=== PATIENT | female | born 2000 | race Caucasian/White ===

== ENCOUNTER 2022-12-13 17:37 | Emergency (ER) | payer OTHER, SELFPAY ==
[2022-12-13 18:18] LABS: Urine Blood Negative (Negative); Urine Glucose Negative (Negative); Urine Protein Negative (Negative); Urine Specific Gravity <=1.005 (1.005-1.030)
[2022-12-13 18:26] LABS: Absolute Lymphocytes (CBC) 2.8 K/uL (0.7-4.9); Hematocrit 40.1 % (36.0-45.0); MCV 89.9 fL (80-100); MPV 7.2 fL (7.6-11.3); RBC Red Blood Cell Count 4.46 M/uL (3.86-4.86)
[2022-12-13 18:30] LABS: Protime INR 1.06
[2022-12-13 18:31] LABS: Barbiturates NEGATIVE (NEGATIVE); Benzodiazepines NEGATIVE (NEGATIVE); Cocaine NEGATIVE (NEGATIVE); METHAMPHETAM NEGATIVE (NEGATIVE); Methadone NEGATIVE (NEGATIVE); Opiates NEGATIVE (NEGATIVE); Phencyclidine NEGATIVE (NEGATIVE); THC Cannibis NEGATIVE (NEGATIVE)
[2022-12-13 18:40] LABS: Albumin 4.5 g/dL (3.4-5.0); Bilirubin Direct 0.2 mg/dL (0-0.2); Bilirubin Total 0.8 mg/dL (0.2-1.0); Potassium 3.7 mmol/L (3.5-5.1); Protein, Total 8.9 g/dL (6.4-8.2)
[2022-12-13 19:50] LABS: SARS-CoV-2 Antigen Rapid Res Negative (Negative)
--- NOTE | 2022-12-14 00:33 | EDPHYS ---
Physician Documentation [facility] Name: Manisha Whitt Age: 22 yrs Sex: Female : 2000 Arrival Date: 12/13/2022 Time: 17:45 Bed 19 Private MD: ED Physician Kevin Cotton HPI: 12/13 17:51 This 22 yrs old Female presents to ER via Unassigned with complaints of Suicidal sp3 Ideation, Abdominal Pain. 17:51 22-year-old female with a history of bipolar disease with heavy depression presents to [facility] the ED with suicidal ideation after "a stressful day" with minor verbal altercation with her after which she took 7 packets of Milag[place] plus day night which has 325 mg of acetaminophen, 10 mg of dextromethorphan, 5 mg of phenylephrine per packet giving a total dosage of acetaminophen 2.275 g, 71 g of dextromethorphan and 35 mg of phenylephrine. Patient is not currently suicidal and only complains of mild nausea. She denies any headache, URI symptoms, fever, neck pain, chest pain, back pain, shortness of breath, vomiting, diarrhea, abdominal pain, bleeding, rash, homicidal ideation, active psychosis, travel history, known sick contacts, prior acetaminophen overdose or any other signs or symptoms on review of systems at this time.. GARMENT FITTER: 12/14 01:00 LMP N/A - unknown pf1 Historical: - Allergies: 12/13 17:56 No Known Allergies; db - PSHx: 17:56 depression; db - Immunization history:: Adult Immunizations unknown. - Social history:: Smoking status: Patient denies any tobacco usage or history of. ROS: 17:55 Constitutional: Negative for fever, chills, and weight loss, Eyes: Negative for injury, sp3 pain, redness, and discharge, ENT: Negative for injury, pain, and discharge, Neck: Negative for injury, pain, and swelling, Cardiovascular: Negative for chest pain, palpitations, and edema, Respiratory: Negative for shortness of breath, cough, wheezing, and pleuritic chest pain, Back: Negative for injury and pain, MS/Extremity: Negative for injury and deformity, Skin: Negative for injury, rash, and discoloration, Neuro: Negative for headache, weakness, numbness, tingling, and seizure, Allergy/Immunology: Negative for hives, rash, and allergies, Endocrine: Negative for neck swelling, polydipsia, polyuria, polyphagia, and marked weight changes. 17:55 All other systems are negative. Exam: 17:55 Constitutional: This is a well developed, well nourished patient who is awake, alert, sp3 and in no acute distress. Head/Face: Normocephalic, atraumatic. Eyes: Pupils equal round and reactive to light, extra-ocular motions intact. Lids and lashes normal. Conjunctiva and sclera are non-icteric and not injected. Cornea within normal limits. Periorbital areas with no swelling, redness, or edema. ENT: Nares patent. No nasal discharge, no septal abnormalities noted. External auditory canals are clear. Oropharynx with no redness, swelling, or masses, exudates, or evidence of obstruction, uvula midline. Mucous membranes moist. Neck: Trachea midline, no thyromegaly or masses palpated, and no cervical lymphadenopathy. Supple, full range of motion without nuchal rigidity, or vertebral point tenderness. No Meningismus. Chest/axilla: Normal chest wall appearance and motion. Nontender with no deformity. No lesions are appreciated. Cardiovascular: Regular rate and rhythm with a normal S1 and S2. No gallops, murmurs, or rubs. Normal PMI, no JVD. No pulse deficits. Respiratory: Lungs have equal breath sounds bilaterally, clear to auscultation and percussion. No rales, rhonchi or wheezes noted. No increased work of breathing, no retractions or nasal flaring. Abdomen/GI: Soft, non-tender, with normal bowel sounds. No distension or tympany. No guarding or rebound. No evidence of tenderness throughout. Back: No spinal tenderness. No costovertebral tenderness. Full range of motion. MS/ Extremity: Pulses equal, no cyanosis. Neurovascular intact. Full, normal range of motion. Neuro: Awake and alert, GCS 15, oriented to person, place, time, and situation. Cranial nerves II-XII grossly intact. Motor strength 5/5 in all extremities. Sensory grossly intact. Cerebellar exam normal. Normal gait. 17:55 Psych: Patient denies on direct questioning any current suicidal ideation, homicidal ideation, psychosis. Her affect is flat. She is not responding to internal stimuli.. 19:44 ECG was reviewed by the Attending Physician. kdr Vital Signs: 17:30 BP 116 / 76; Pulse 72; Resp 16; Temp 98.9(O); Pulse Ox 100% ; Weight 63.5 kg; Height 5 db ft. 7 in. (170.18 cm); 18:30 BP 98 / 69; Pulse 69; Resp 16; Pulse Ox 97% on R/A; db 19:30 BP 98 / 64; Pulse 65; Resp 18; Temp 98; Pulse Ox 100% on R/A; Pain 0/10; pf1 20:30 BP 100 / 58; Pulse 84; Resp 16; Pulse Ox 100% on R/A; Pain 0/10; pf1 21:00 BP 110 / 62; Pulse 80; Resp 16; Pulse Ox 97% on R/A; Pain 0/10; pf1 22:00 BP 98 / 59; Pulse 74; Resp 18; Pulse Ox 99% on R/A; Pain 0/10; pf1 23:00 BP 104 / 56; Pulse 73; Resp 16; Pulse Ox 99% on R/A; Pain 0/10; pf1 12/14 00:00 BP 92 / 64; Pulse 67; Resp 18; Pulse Ox 100% on R/A; Pain 0/10; pf1 00:37 BP 105 / 71 LA Sitting (auto/reg); Pulse 78 MON; Resp 16 S; Temp 98.3(O); Pulse Ox 99% ds4 on R/A; 12/13 17:30 Body Mass Index 21.93 (63.50 kg, 170.18 cm) db MDM: 12/13 17:49 Patient medically screened. sp3 17:56 Data reviewed: vital signs, nurses notes. ED course: 22-year-old with intentional sp3 overdose Mil[place] including acetaminophen, dextromethorphan, phenylephrine. Her total acetaminophen intake is estimated at 2.275 g well within the 4 g limit. Patient is not actively suicidal. Patient likely will be medically clear and if psychiatry clears her, I think will be safe for outpatient follow-up. Signed patient out to night physician for final disposition.. 12/14 00:35 ED course: I reevaluated the patient along with her . They are sitting here in kdr the ED now for nearly 20 hours. Patient has been cooperative and without further incident. Patient's laboratory data was reviewed. There were no issues to address there. Patient and her feel that she is stabilized at this time and is not a threat to herself. Further the will be more active and managing the medications and the patient's mental status. Patient stated that particulars today was difficult because a near relative had been placed in a difficult medical situation and that was troubling to the patient which precipitated the action which happened today. Patient otherwise was stable and appropriate in the ED and appears nontoxic and able to be discharged on her own with her .. 12/13 17:45 Order name: Acetaminophen; Complete Time: 19:39 sp3 12/13 17:45 Order name: Basic Metabolic Panel; Complete Time: 19:39 sp3 12/13 17:45 Order name: CBC with Diff; Complete Time: 19:39 sp3 12/13 17:45 Order name: ETOH Level; Complete Time: 19:39 sp3 12/13 17:45 Order name: Hepatic Function; Complete Time: 19:39 sp3 12/13 17:45 Order name: PT-INR; Complete Time: 19:39 sp3 12/13 17:45 Order name: Ptt, Activated; Complete Time: 19:39 sp3 12/13 17:45 Order name: Salicylate; Complete Time: 19:39 sp3 12/13 17:45 Order name: Urine Drug Screen; Complete Time: 19:39 sp3 12/13 17:45 Order name: EKG; Complete Time: 17:46 sp3 12/13 17:45 Order name: EKG - Nurse/Tech; Complete Time: 19:43 sp3 12/13 18:18 Order name: Urine Dipstick-Ancillary; Complete Time: 19:39 EDMS 12/13 19:20 Order name: SARS RAPID; Complete Time: 22:37 bb 12/13 19:41 Order name: Acetaminophen: Draw at 2200; Complete Time: 22:37 kdr 12/13 17:45 Order name: IV Saline Lock; Complete Time: 19:17 sp3 12/13 17:45 Order name: Labs collected and sent; Complete Time: 19:17 sp3 12/13 17:45 Order name: Suicide Precautions; Complete Time: 18:00 sp3 12/13 17:45 Order name: Suicide Screening ([place]); Complete Time: 19:17 sp3 12/13 17:45 Order name: Urine Dipstick-Ancillary (obtain specimen); Complete Time: 18: sp3 12/13 17:45 Order name: Urine Test (obtain specimen); Complete Time: 18: sp3 EC/16 19:44 Rate is 68 beats/min. Rhythm is regular, Sinus Rhythm with No ectopy. QRS [place] is kdr Normal. ME interval is normal. QRS interval is normal. QT interval is normal. Clinical impression: NSR w/ Non-specific ST/T Changes. Administered Medications: No medications were administered Disposition Summary: 12/14/22 00:33 Discharge Ordered Location: Home kdr Problem: an acute exacerbation kdr Symptoms: have improved kdr Condition: Stable kdr Diagnosis - Suicidal ideations kdr - Suicide attempt kdr - Major depressive disorder, recurrent, moderate kdr - Bipolar disorder, current episode depressed, mild or moderate severity kdr Followup: kdr - With: Private Physician - When: 48 Hours - Reason: If symptoms return, Further diagnostic work-up, Recheck today's complaints, Continuance of care, Re-evaluation by your physician Discharge Instructions: - Discharge Summary Sheet kdr - Suicidal Feelings: How to Help Yourself kdr - Helping Someone Who is Suicidal kdr Forms: - Medication Reconciliation Form kdr - Thank You Letter kdr Signatures: Dispatcher [employer] Kevin Acharya MD MD kdr Santos Kothari MD MD sp3 Mary Castillo, RN RN db
--- NOTE | 2022-12-14 00:33 | ER ---
Nurse's Notes [facility] Name: Manisha Whitt Age: 22 yrs Sex: Female : 2000 Arrival Date: 12/13/2022 Time: 17:45 Bed 19 Private MD: Diagnosis: Suicidal ideations;Suicide attempt;Major depressive disorder, recurrent, moderate;Bipolar disorder, current episode depressed, mild or moderate severity Presentation: 12/13 17:30 Chief complaint: EMS states: patient took 5 to 7 Mil[place] day and night cold plus. db States has been off antidpressants and mood stabilizers. states took about 1 hour ago. Complains of abdominal pain and nausea. Coronavirus screen: Vaccine status: Patient reports receiving the 1st dose of the Covid vaccine. Client denies travel out of the [place] in the last 14 days. Ebola Screen: Patient negative for fever greater than or equal to 101.5 degrees Fahrenheit, and additional compatible Ebola Virus Disease symptoms Patient denies exposure to infectious person. Patient denies travel to an Ebola-affected area in the 21 days before illness onset. No symptoms or risks identified at this time. Initial Sepsis Screen: Does the patient meet any 2 criteria? No. Patient's initial sepsis screen is negative. Does the patient have a suspected source of infection? No. Patient's initial sepsis screen is negative. Risk Assessment: Do you want to hurt yourself or someone else? Patient reports no desire to harm self or others. Onset of symptoms was December 13, 2022 at 16:30. 17:30 Method Of Arrival: EMS db 17:30 Acuity: IRMA 2 db Triage Assessment: 17:56 General: Appears in no apparent distress. comfortable, Behavior is calm, cooperative. db Pain: Complains of pain in abdomen. GI: Abdomen is flat, non-distended, Reports lower abdominal pain, upper abdominal pain, nausea. BURR FILER: 12/14 01:00 LMP N/A - unknown pf1 Historical: - Allergies: 12/13 17:56 No Known Allergies; db - PSHx: 17:56 depression; db - Immunization history:: Adult Immunizations unknown. - Social history:: Smoking status: Patient denies any tobacco usage or history of. Screenin:00 [facility] ED Fall Risk Assessment (Adult) History of falling in the last 3 months, db including since admission No falls in past 3 months (0 pts) Confusion or Disorientation No (0 pts) Intoxicated or Sedated No (0 pts) Impaired Gait No (0 pts) Mobility Assist Device Used No (0 pt) Altered Elimination No (0 pt) Score/Fall Risk Level 0 - 2 = Low Risk Oriented to surroundings, Maintained a safe environment, Educated pt \\T\\ family on fall prevention, incl call for assistance when getting out of bed. Abuse screen: Denies threats or abuse. Denies injuries from another. Nutritional screening: No deficits noted. Tuberculosis screening: No symptoms or risk factors identified. Assessment: 17:59 Reassessment: Patient appears in no apparent distress at this time. Patient and/or db family updated on plan of care and expected duration. Pain level reassessed. Patient is alert, oriented x 3, equal unlabored respirations, skin warm/dry/pink. see triage assessment for initial assessment. General: Appears in no apparent distress. comfortable, Behavior is calm, cooperative. Neuro: Level of Consciousness is awake, alert, obeys commands, Oriented to person, place, time, situation. 19:00 General: Appears in no apparent distress. comfortable, well groomed, well developed, pf1 Behavior is calm, cooperative, appropriate for age, quiet, Patient denies any suicidal or homicidal ideations at this time. at BS. No acute distress noted. Patient resting on stretcher, curtain opened in view of nurses station. Suicidal precautions in place. . 19:00 Pain: Denies pain. Neuro: No deficits noted. Level of Consciousness is awake, alert, pf1 obeys commands, Oriented to person, place, time, situation. Cardiovascular: No deficits noted. Capillary refill < 3 seconds Patient's skin is warm and dry. Respiratory: No deficits noted. Airway is patent Trachea midline Respiratory effort is even, unlabored, Respiratory pattern is regular, symmetrical. GI: No deficits noted. No signs and/or symptoms were reported involving the gastrointestinal system. : No deficits noted. No signs and/or symptoms were reported regarding the genitourinary system. EENT: No deficits noted. No signs and/or symptoms were reported regarding the EENT system. Derm: No deficits noted. No signs and/or symptoms reported regarding the dermatologic system. Musculoskeletal: No deficits noted. No signs and/or symptoms reported regarding the musculoskeletal system. 20:00 Reassessment: Patient appears in no apparent distress at this time. Patient and/or pf1 family updated on plan of care and expected duration. Pain level reassessed. Patient is alert, oriented x 3, equal unlabored respirations, skin warm/dry/pink. suicidal precautions in place. Continue monitoring patient. 21:00 Reassessment: Patient appears in no apparent distress at this time. No changes from pf1 previously documented assessment. Patient and/or family updated on plan of care and expected duration. Pain level reassessed. Patient is alert, oriented x 3, equal unlabored respirations, skin warm/dry/pink. Patient denies pain at this time. Patient states feeling better. Patient states symptoms have improved. 22:00 Reassessment: Patient appears in no apparent distress at this time. No changes from pf1 previously documented assessment. Patient and/or family updated on plan of care and expected duration. Pain level reassessed. Patient is alert, oriented x 3, equal unlabored respirations, skin warm/dry/pink. Patient denies pain at this time. Patient states feeling better. Patient states symptoms have improved. Patient denies any suicidal ideations at this time. 23:00 Reassessment: Patient appears in no apparent distress at this time. No changes from pf1 previously documented assessment. Patient and/or family updated on plan of care and expected duration. Pain level reassessed. Patient is alert, oriented x 3, equal unlabored respirations, skin warm/dry/pink. Patient denies pain at this time. Patient states feeling better. Patient states symptoms have improved. Patient denies any suicidal or homicidal ideations, at . 12/14 00:00 Reassessment: Patient appears in no apparent distress at this time. No changes from pf1 previously documented assessment. Patient and/or family updated on plan of care and expected duration. Pain level reassessed. Patient is alert, oriented x 3, equal unlabored respirations, skin warm/dry/pink. Patient states symptoms have improved. 01:00 Reassessment: Patient appears in no apparent distress at this time. No changes from pf1 previously documented assessment. Patient and/or family updated on plan of care and expected duration. Pain level reassessed. Patient is alert, oriented x 3, equal unlabored respirations, skin warm/dry/pink. Patient states feeling better. Patient states symptoms have improved. Patient denies any suicidal or homicidal ideations at this time.. Psych: 12/13 17:35 [place] Suicide Severity Screening: In the past month, have you wished you were db or wished you could go to sleep and not wake up? Patient responds "No." "In the past month, have you actually had any thoughts of killing yourself?" Patient responds "yes." "In your lifetime, have you ever done anything, started to do anything, or prepared to do anything to end your life?" Patient responds "yes.". [place] Suicide Severity Screening: "In the past month, have you actually had any thoughts of killing yourself?" "In your lifetime, have you ever done anything, started to do anything, or prepared to do anything to end your life?" Patient responds "yes." Patient reports suicidal intent within 3 past months. Subjective: Patient's mood is sad, Delusions are denied, Hallucinations are denied Having thoughts of suicide. Plan for suicide is overdose. Objective: Patient is cooperative, Speech is normal, Affect is flat. Interventions: Removed personal items and placed in bag. Patient placed in hospital gown. Searched person for dangerous items. Urine collected and sent for urine drug test. Belonging list filled out. Patient reassessed during use of restraints. Patient is physically safe. Patient's cardiac status is stable. Patient's respirations are even and unlabored. Patient has good circulation in all extremities as indicated by capillary refill < 3 seconds. Patient's ROM assessed and is intact. Safety Checks: Personal items have been removed. Door is open. No visitors are present at this time. Pt denies substance abuse. Commitment: Patient will be a voluntary commitment. 19:00 [place] Suicide Severity Screening: In the past month, have you wished you were pf1 or wished you could go to sleep and not wake up? Patient responds "No." patient denies any suicidal or homicidal ideations at this time. "In the past month, have you actually had any thoughts of killing yourself?" Patient responds "yes." Patient stated 3 previous attempts per OD and 1 hanging attempts in the past "In your lifetime, have you ever done anything, started to do anything, or prepared to do anything to end your life?" Patient responds "yes." Patient reports suicidal intent within 3 past months. Subjective: Patient's mood is sad, depressed Delusions are denied, Hallucinations are denied Having thoughts of suicide. 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 Objective: Patient is cooperative, Speech is normal, Affect is appropriate. Interventions: Removed personal items and placed in bag. Patient placed in hospital gown. Searched person for dangerous items. patient placed in blue paper scrubs. Safety Checks: Personal items have been removed. Door is open. Visitors are present. Pt denies substance abuse. Vital Signs: 17:30 BP 116 / 76; Pulse 72; Resp 16; Temp 98.9(O); Pulse Ox 100% ; Weight 63.5 kg; Height 5 db ft. 7 in. (170.18 cm); 18:30 BP 98 / 69; Pulse 69; Resp 16; Pulse Ox 97% on R/A; db 19:30 BP 98 / 64; Pulse 65; Resp 18; Temp 98; Pulse Ox 100% on R/A; Pain 0/10; pf1 20:30 BP 100 / 58; Pulse 84; Resp 16; Pulse Ox 100% on R/A; Pain 0/10; pf1 21:00 BP 110 / 62; Pulse 80; Resp 16; Pulse Ox 97% on R/A; Pain 0/10; pf1 22:00 BP 98 / 59; Pulse 74; Resp 18; Pulse Ox 99% on R/A; Pain 0/10; pf1 23:00 BP 104 / 56; Pulse 73; Resp 16; Pulse Ox 99% on R/A; Pain 0/10; pf1 17 00:00 BP 92 / 64; Pulse 67; Resp 18; Pulse Ox 100% on R/A; Pain 0/10; pf1 00:37 BP 105 / 71 LA Sitting (auto/reg); Pulse 78 MON; Resp 16 S; Temp 98.3(O); Pulse Ox 99% ds4 on R/A; 12/13 17:30 Body Mass Index 21.93 (63.50 kg, 170.18 cm) db ED Course: 12/13 17:45 Patient arrived in ED. db 17:45 Santos Kothari MD is Attending Physician. sp3 17:56 Triage completed. db 17:58 Arm band placed on right wrist. Patient placed in an exam room. db 18:00 Mary Castillo, RN is Primary Nurse. db 18:15 Inserted saline lock: 20 gauge. db 18:20 Warm blanket given. db 19:21 Patient has correct armband on for positive identification. Bed in low position. Call db light in reach. Side rails up X 1. Pulse ox on. NIBP on. 19:22 Report given to ANDREA Mathew. db 19:35 Attending Physician role handed off by Santos Kothari MD kdr 19:35 Kevin Cotton MD is Attending Physician. kdr 21:57 Acetaminophen: Draw at 2200 Sent. ds4 12/14 01:21 No provider procedures requiring assistance completed. IV discontinued, intact, pf1 bleeding controlled, No redness/swelling at site. Pressure dressing applied. Administered Medications: No medications were administered Medication: 01:23 VIS not applicable for this client. pf1 Outcome: 00:33 Discharge ordered by MD. kdr 01:22 Discharged to home ambulatory, with family. pf1 01:22 Condition: improved 01:22 Discharge instructions given to patient, family, Instructed on discharge instructions, follow up and referral plans. Demonstrated understanding of instructions, follow-up care, patient verbalized discharge understanding regarding safety plan that was implemented before discharge. 01:23 Patient left the ED. pf1 Signatures: Kevin Cotton MD MD kdr Frederick Rojas ds4 Santos Kothari MD MD sp3 Mary Castillo, ANDREA RN Anabel dietz RN RN pf1 Corrections: (The following items were deleted from the chart) 12/13 20:40 20:39 Reassessment: Patient appears in no apparent distress at this time. Patient pf1 and/or family updated on plan of care and expected duration. Pain level reassessed. Patient is alert, oriented x 3, equal unlabored respirations, skin warm/dry/pink. suicidal precautions in place. Continue monitoring patient. pf1
[2022-12-14 02:55] VITALS: BP 105/71; TEMP 98.3; O2SAT 99
--- NOTE | 2022-12-14 16:01 | EKG ---
Test Date: 2022-12-13 Test Time: 19:39:49 Human Resources Manager: ELIANE MEASUREMENT RESULTS: Intervals: Rate: 68 DC: 146 QRSD: 106 QT: 400 QTc: 425 [place]: P: 59 DC: 146 QRS: 92 T: 77 INTERPRETIVE STATEMENTS: Normal sinus rhythm Rightward axis Cannot rule out Anterior infarct, age undetermined Abnormal ECG No previous ECG available for comparison Electronically Signed On 12-14-22 16:00:05 ELECTRONIC DESIGN ENGINEER by Cam Alves
== END 2022-12-14 01:23 | disposition home or self-care (01) ==
LOC: EDBD 17:37 → ER 17:37
DX: T39.1X2A Poisoning by 4-Aminophenol derivatives, intentional self-harm, initial encounter (principal); T44.4X2A Poisoning by predominantly alpha-adrenoreceptor agonists, intentional self-harm, initial encounter; T48.3X2A Poisoning by antitussives, intentional self-harm, initial encounter; R11.0 Nausea; F31.32 Bipolar disorder, current episode depressed, moderate; Z20.822 Contact with and (suspected) exposure to COVID-19
CPT/HCPCS: 93005; 85025; 80048; 36415; 85610; 80076; 85730; 81003; 80307; 99285; 87811; G0480 ×4